=== PATIENT | female | born 1985 | race Two or more races ===

== ENCOUNTER 2018-03-03 19:42 | Emergency (ER) | payer MEDICAID ==
[~2018-03-03] VITALS: Ht 152.4 cm; Wt 77.1 kg
[2018-03-03 21:31] VITALS: BP 130/80
== END 2018-03-03 23:03 | disposition home or self-care (01) ==
LOC: ER 19:42
DX: S13.4XXA Sprain of ligaments of cervical spine, initial encounter (principal); S80.01XA Contusion of right knee, initial encounter; M62.838 Other muscle spasm; V49.3XXA Car occupant (driver) (passenger) injured in unspecified nontraffic accident, initial encounter; Y93.89 Activity, other specified; Y92.89 Other specified places as the place of occurrence of the external cause; Y99.8 Other external cause status
CPT/HCPCS: 71046; 73030; 73080; 73562